=== PATIENT | male | born 1955 | race Native Hawaiian/Other Pacific Islander ===

== ENCOUNTER 2023-07-13 20:57 | Emergency (ER) | payer MEDICARE, OTHER ==
[~2023-07-13] VITALS: Ht 160 cm; Wt 71.7 kg
[2023-07-13] MEDS ORDERED: LIDOCAINE 1%-EPI 1:100,000 20 ML VIAL ONE (21:15)
[2023-07-13] MEDS ORDERED: CEPH500T PO (21:24)
[2023-07-13] MEDS ORDERED: SODIUM BICARBONATE 4.2 % (NEUT) 5 ML VIAL ONE (21:28)
[2023-07-13] MEDS ORDERED: CEFTRIAXONE 1 G VIAL IM ONE (22:15)
[2023-07-13] MEDS ORDERED: CEFTRIAXONE 1 G VIAL ONE (22:16)
[2023-07-13] MEDS ORDERED: SODIUM BICARBONATE 4.2 % (NEUT) 5 ML VIAL TP ONE (22:30)
[2023-07-13] MEDS ORDERED: LIDOCAINE 1%-EPI 1:100,000 20 ML VIAL IJ ONE (22:30)
[2023-07-13 22:38] VITALS: BP 129/85; TEMP 98.5; O2SAT 97
== END 2023-07-13 22:39 | disposition home or self-care (01) ==
LOC: ER 21:11
DX: S01.81XA Laceration without foreign body of other part of head, initial encounter (principal); E78.5 Hyperlipidemia, unspecified; E11.9 Type 2 diabetes mellitus without complications; Z79.2 Long term (current) use of antibiotics; W26.8XXA Contact with other sharp object(s), not elsewhere classified, initial encounter; Y93.89 Activity, other specified; Y92.89 Other specified places as the place of occurrence of the external cause; Y99.8 Other external cause status
CPT/HCPCS: 12013; 70100; 96372; 99283; J0696; J3490; 70030-TC; A4663

== ENCOUNTER 2023-07-21 20:26 | Emergency (ER) | payer MEDICARE, OTHER ==
[~2023-07-21] VITALS: Ht 160 cm; Wt 71.7 kg
[~2023-07-21 20:26] MED LIST: CEPH500T PO
[2023-07-21 20:53] VITALS: BP 138/70; TEMP 98.2; O2SAT 100
== END 2023-07-21 20:45 | disposition home or self-care (01) ==
LOC: ER 20:33
DX: S01.81XD Laceration without foreign body of other part of head, subsequent encounter (principal); E78.5 Hyperlipidemia, unspecified; E11.9 Type 2 diabetes mellitus without complications; Z79.899 Other long term (current) drug therapy; X58.XXXD Exposure to other specified factors, subsequent encounter
CPT/HCPCS: A4663

== ENCOUNTER 2025-08-01 16:38 | Emergency (ER) | payer MEDICARE, OTHER ==
[~2025-08-01] VITALS: Ht 170.2 cm; Wt 68.0 kg
[2025-08-01 16:40] VITALS: BP 155/98
[2025-08-01] MEDS ORDERED: HYDROCODONE/APAP 10-325 MG TABLET ONE (17:23)
[2025-08-01] MEDS: HYDROCODONE/APAP 10-325 MG TABLET PO ONE (17:26)
[2025-08-01] MEDS ORDERED: HYDR-3980 PO (18:21)
[2025-08-01] MEDS ORDERED: CAPS1ADH8 TP (18:23)
[2025-08-01] MEDS ORDERED: LIDO1ADH82 TP (18:23)
[2025-08-01 18:35] VITALS: BP 146/91; O2SAT 99
== END 2025-08-01 18:39 | disposition home or self-care (01) ==
LOC: ER 16:40
DX: S16.1XXA Strain of muscle, fascia and tendon at neck level, initial encounter (principal); E11.9 Type 2 diabetes mellitus without complications; E78.5 Hyperlipidemia, unspecified; I51.9 Heart disease, unspecified; M43.12 Spondylolisthesis, cervical region; Z79.4 Long term (current) use of insulin; Z85.828 Personal history of other malignant neoplasm of skin; X58.XXXA Exposure to other specified factors, initial encounter; Y93.89 Activity, other specified; Y92.89 Other specified places as the place of occurrence of the external cause; Y99.9 Unspecified external cause status
CPT/HCPCS: 72050; A4606; A4663